=== PATIENT | male | born 1985 | race Caucasian/White ===

== ENCOUNTER 2017-01-11 18:21 | Emergency (ER) | payer BC, OTHER ==
[2017-01-11 18:34] VITALS: BP 131/79
--- NOTE | 2017-01-11 18:52 | ED ---
Back Pain - HPI Summary HPI Summary: 31M presents with back and neck pain and generalized ill feeling for 3 days. He states that he feels ill and that he normally does not have neck or back pain. He denies any fever but states that he feels hot and cold flashes. He states all of his joints have been hurting him but the worst is his back and neck. He denies any photophobia or changes in vision. He is still able to move his neck and states that it is a different pain than he has every experienced in the past. He denies any injury. He denies any history of back or neck pain. He states that it is hard to describe the pain it is almost like an ache but then he has this extreme fatigue along with it and has slept for 2 days straight. He states that he has been outside a lot doing yard work. He states he has had some recent tick exposure but he thought he got them off before they attached. He denies any rash. No loss of bowel or bladder or saddle anaesthesia. no weakness or numbness or tingling. He denies any cough, sore throat, abdominal pain, chest pain or SOB. <Renee Nguyen - Last Filed: 01/11/17 19:27> <Edelmira An - Last Filed: 01/11/17 20:35> - History of Current Complaint Chief Complaint: UCGeneralIllness Stated Complaint: NECK AND BACK PAIN Time Seen by Provider: 01/11/17 18:39 - Allergies/Home Medications Allergies/Adverse Reactions: Allergies Allergy/AdvReac Type Severity Reaction Status Date / Time No Known Allergies Allergy Verified 07/25/14 09:22 PMH/Surg Hx/FS Hx/Imm Hx Endocrine/Hematology History: Denies: Hx Diabetes, Hx Thyroid Disease Cardiovascular History: Denies: Hx Hypertension Respiratory History: Denies: Hx Asthma, Hx Chronic Obstructive Pulmonary Disease (COPD) GI History: Denies: Hx Ulcer Infectious Disease History: No Infectious Disease History: Denies: Hx Clostridium Difficile, Hx Hepatitis, Hx Human Immunodeficiency Virus (HIV), Hx of Known/Suspected MRSA, Hx Shingles, Hx Tuberculosis, Traveled Outside the [place] in Last 30 Days - Family History Known Family History: Positive: Cardiac Disease - Social History Alcohol Use: Occasionally Substance Use Type: Reports: None Smoking Status (MU): Former Smoker Type: eCigarettes Length of Time of Smoking/Using Tobacco: 8 YEARS Have You Smoked in the Last Year: No <Renee Nguyen - Last Filed: 01/11/17 19:27> Review of Systems Positive: Chills, Fatigue. Negative: Fever Negative: Chest Pain Positive: Myalgia - neck and back pain Positive: Headache All Other Systems Reviewed And Are Negative: Yes <Renee Nguyen - Last Filed: 01/11/17 19:27> Physical Exam Triage Information Reviewed: Yes Vital Signs On Initial Exam: Initial Vitals Temp Pulse Resp BP Pulse Ox 97.9 F 83 18 131/79 98 01/11/17 18:28 01/11/17 18:28 01/11/17 18:28 01/11/17 18:28 01/11/17 18:28 Vital Signs Reviewed: Yes Appearance: Positive: Ill-Appearing - faigued appearing Skin: Positive: Warm, Dry Head/Face: Positive: Normal Head/Face Inspection Eyes: Positive: Normal, EOMI, CARLA, Conjunctiva Clear ENT: Positive: Normal ENT inspection, Pharynx normal, TMs normal Neck: Positive: No Lymphadenopathy, Other: - tenderness across neck, no midline tenderness. Negative: Nuchal Rigidity Respiratory/Lung Sounds: Positive: Clear to Auscultation, Breath Sounds Present Cardiovascular: Positive: Normal, RRR Abdomen Description: Positive: Nontender, Soft Bowel Sounds: Positive: Present Musculoskeletal: Positive: Strength/ROM Intact - neck and back, Other - neg SLR , tender across entire back Neurological: Positive: Reflexes Intact - patella, biceps <Renee Nguyen - Last Filed: 01/11/17 19:27> Vital Signs On Initial Exam: Initial Vitals Temp Pulse Resp BP Pulse Ox 97.9 F 83 18 131/79 98 01/11/17 18:28 01/11/17 18:28 01/11/17 18:28 01/11/17 18:28 01/11/17 18:28 <Edelmira An - Last Filed: 01/11/17 20:35> Diagnostics - Vital Signs Vital Signs Temp Pulse Resp BP Pulse Ox 01/11/17 18:28 97.9 F 83 18 131/79 98 <Renee Nguyen - Last Filed: 01/11/17 19:27> - Vital Signs Vital Signs Temp Pulse Resp BP Pulse Ox 01/11/17 18:28 97.9 F 83 18 131/79 98 <Edelmira An - Last Filed: 01/11/17 20:35> Back Pain Course/Dx - Course Course Of Treatment: 31M presents with back and neck pain and generalized ill feeling for 3 days. He states that he feels ill and that he normally does not have neck or back pain. He denies any fever but states that he feels hot and cold flashes. He states all of his joints have been hurting him but the worst is his back and neck. He denies any photophobia or changes in vision. He is still able to move his neck and states that it is a different pain than he has every experienced in the past. He denies any injury. He denies any history of back or neck pain. He states that it is hard to describe the pain it is almost like an ache but then he has this extreme fatigue along with it and has slept for 2 days straight. He states that he has been outside a lot doing yard work. He states he has had some recent tick exposure but he thought he got them off before they attached. He denies any rash. on exam neg nuchal rigidity. no midline tenderness neck and back, neurovascular intact. patient appear fatigue on exam but afebrile. due to fatigue, back pain and headache and history of tick exposure will treat for lyme. with no history of trauma do not believe is musculoskeletal at this point. patient refused lyme titer. will treat with doxcycline. gave referral for PCP for patient to follow up about blood pressure. warned of signs to go to ED for such as nuchal rigidity with persistent fever. patient understands and agrees with plan. - Diagnoses Differential Diagnosis/HQI/PQRI: Positive: Herniated Disc, Sprain, Other - lyme <Renee Nguyen - Last Filed: 01/11/17 19:27> <Edelmira An - Last Filed: 01/11/17 20:35> - Diagnoses Provider Diagnoses: Back pain, Elevated blood pressure reading, Lyme disease Discharge <Renee Nguyen - Last Filed: 01/11/17 19:27> <Edelmira An - Last Filed: 01/11/17 20:35> - Discharge Plan Condition: Good Disposition: HOME Prescriptions: DOXYcycline CAP(*) [DOXYcycline 100MG CAP(*)] 100 mg PO BID #42 cap Patient Education Materials: Lyme Disease (ED) Forms: *Work Release [place]errals: [facility] [place] [facility] [place]Outside] Additional Instructions: You are being treated potentially for Lyme disease Take antibiotic twice a day for 21 days Take with food, use sunscreen when go outside Take Tylenol or ibuprofen for pain every 6 hours Establish care with primary care physician to follow up about blood pressure within 5 days Return to ED if develop persistent fevers with neck stiffness or any new or worsening symptoms Attestation Statement User Type: Provider - I was available for consult. This patient was seen by the [facility]. The patient was not presented to, seen by, or examined by me. -Brie <Edelmira An - Last Filed: 01/11/17 20:35>
== END 2017-01-11 19:18 | disposition home or self-care (01) ==
LOC: UCEAST 18:21
DX: M54.9 Dorsalgia, unspecified (principal); R03.0 Elevated blood-pressure reading, without diagnosis of hypertension; A69.20 Lyme disease, unspecified; Z87.891 Personal history of nicotine dependence
CPT/HCPCS: 99211; G0463

== ENCOUNTER 2018-03-02 14:51 | Emergency (ER) | payer BC, OTHER ==
[2018-03-02 15:10] VITALS: BP 148/54
--- NOTE | 2018-03-02 15:11 | UC ---
FLU HPI - HPI Summary HPI Summary: 32-year-old man otherwise healthy presents with 4 days of cough, congestion, sore throat, nasal discharge and insomnia. He states his cough is worse at night and keeps his awake in addition to not allow him to sleep. He denies any fever, shakes or chills. His son has also been ill with similar type illness. He has not received his flu shot yet this year. He is a nonsmoker. - History of Current Complaint Stated Complaint: SINUS COMPLAINT Time Seen by Provider: 03/02/18 15:04 Hx Obtained From: Patient - Allergy/Home Medications Allergies/Adverse Reactions: Allergies Allergy/AdvReac Type Severity Reaction Status Date / Time No Known Allergies Allergy Verified 03/02/18 15:09 PMH/Surg Hx/FS Hx/Imm Hx Previously Healthy: Yes - Surgical History Surgical History: None - Family History Known Family History: Positive: Cardiac Disease, Other - son also ill - Social History Alcohol Use: Occasionally Substance Use Type: None Smoking Status (MU): Former Smoker Type: eCigarettes Length of Time of Smoking/Using Tobacco: 8 YEARS Have You Smoked in the Last Year: No When Did the Patient Quit Smoking/Using Tobacco: 1 year ago Review of Systems Constitutional: Fatigue Skin: Negative Eyes: Negative ENT: Sore Throat, Ear Ache, Nasal Discharge, Sinus Congestion Respiratory: Cough Cardiovascular: Negative All Other Systems Reviewed And Are Negative: Yes Physical Exam Triage Information Reviewed: Yes Appearance: Well-Appearing, No Pain Distress, Well-Nourished Vital Signs Reviewed: Yes Eyes: Positive: Conjunctiva Clear ENT: Positive: Pharyngeal erythema, Nasal congestion, Nasal drainage, TM dull - R ear with small serous effusion. Negative: TM bulging, TM red, Tonsillar swelling, Tonsillar exudate, Sinus tenderness Neck: Positive: Supple, Nontender, No Lymphadenopathy Respiratory: Positive: Lungs clear Cardiovascular: Positive: RRR Musculoskeletal: Positive: Strength Intact Neurological Exam: Normal Skin Exam: Normal Flu Course/Dx - Course Course Of Treatment: minor URI sx, BP mildly elevated. Tx symptomatically. No hx of BP. BP likely related to acute illness. - Differential Dx/Diagnosis Differential Diagnosis/HQI/PQRI: Influenza, Pneumonia, Upper Respiratory Infection Provider Diagnoses: Upper respiratory infection. Elevated blood pressure due to acute illness Discharge - Sign-Out/Discharge Documenting (check all that apply): Patient Departure All imaging exams completed and their final reports reviewed: No Studies - Discharge Plan Condition: Improved Disposition: HOME Prescriptions: Albuterol HFA INHALER* [Ventolin HFA Inhaler*] 2 puff INH Q4H PRN #1 mdi PRN Reason: Sob/Wheezing Guaifenesin/Pseudoephedrne HCl [Mucinex D ER Tablet] 1 each PO BID PRN #14 tab.er.12h PRN Reason: congestion/nasal drainage predniSONE TAB* [Deltasone TAB*] 50 mg PO DAILY #5 tab Patient Education Materials: Upper Respiratory Infection (ED) Forms: *Work Release Referrals: [facility] [Outside] [facility] [place] [facility] [place]] Additional Instructions: Humidifier at bedside. Avoid smokers. Benadryl or NyQuil at bedtime for sleep. Return if worse, high fevers, new symptoms or other concerns. Melatonin can also help with sleep. - Billing Disposition and Condition Condition: IMPROVED Disposition: Home - Attestation Statements Document Initiated by Ramses: No
== END 2018-03-02 15:31 | disposition home or self-care (01) ==
LOC: UCEAST 14:51
DX: J06.9 Acute upper respiratory infection, unspecified (principal); R03.0 Elevated blood-pressure reading, without diagnosis of hypertension; Z87.891 Personal history of nicotine dependence
CPT/HCPCS: 99212; G0463

== ENCOUNTER 2019-08-03 08:31 | Emergency (ER) | payer BC ==
[2019-08-03 09:06] VITALS: BP 120/85
[2019-08-03 09:24] LABS: Influenza A Molecular Negative (Negative); Influenza B Molecular Negative (Negative)
--- NOTE | 2019-08-03 09:41 | UC ---
Throat Pain/Nasal Fausto HPI - HPI Summary HPI Summary: CHIEF COMPLAINT: head cold HPI: This is a "I have a head cold; ears scratchy"; beginning this morning with congestion; no sick contacts; no Covid 19 contacts; once or twice a year, similar symptoms; was a smoker 6 years ago. Description of Pain: no VITAL SIGNS REVIEWED. Within normal limits unless noted here. NURSES NOTE REVIEWED. " pt states he feels ill, headache, nasal congestion, cough, afebrile. symptoms started this am. pt is unsure if he has been exposed to anyone with covid-19. " - History of Current Complaint Chief Complaint: UCRespiratory Stated Complaint: HEAD CONGESTION Time Seen by Provider: 08/03/19 09:04 Hx Obtained From: Patient Pain Intensity: 4 - Allergies/Home Medications Allergies/Adverse Reactions: Allergies Allergy/AdvReac Type Severity Reaction Status Date / Time No Known Allergies Allergy Verified 08/03/19 08:51 Home Medications: Home Medications Aspirin/Acetaminophen/Caffeine [Excedrin Migraine Caplet] 1 tab PO ONCE PRN [History Confirmed 08/03/19] PMH/Surg Hx/FS Hx/Imm Hx - Additional Past Medical History Additional PMH: PAST MEDICAL HISTORY- CHRONIC and RECURRENT HEALTH PROBLEM LIST REVIEWED. Information relevant to present complaint: VISIT HISTORY REVIEWED. MEDICATIONS & ALLERGIES REVIEWED. HYPERTENSION STATUS:none. FAMILY HISTORY: Patient denies family history of: hypertension, cardiovascular disease, stroke, diabetes, cancer. 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 Previously Healthy: Yes - Surgical History Surgical History: None - Family History Known Family History: Positive: Cardiac Disease, Other - son also ill - Social History Alcohol Use: None Substance Use Type: None Smoking Status (MU): Former Smoker Type: eCigareyuliaes Length of Time of Smoking/Using Tobacco: 8 YEARS Have You Smoked in the Last Year: No When Did the Patient Quit Smoking/Using Tobacco: 1 year ago Household Exposure Type: Cigarettes Review of Systems All Other Systems Reviewed And Are Negative: Yes Eyes: Positive: Other - watery eyes ENT: Positive: Sinus Congestion Respiratory: Positive: Negative Cardiovascular: Positive: Negative Gastrointestinal: Positive: Negative Is Patient Immunocompromised?: No Physical Exam - Summary Physical Exam Summary: Appearance: The patient is well-appearing, is in no pain or distress, and is well-nourished. Eyes: Conjunctiva are clear. Pupils are equal and reactive to light and accommodation. Extra ocular muscle movement is intact. ENT: The hearing is grossly normal, the pharynx is normal, and the TMs are normal. There is no muffled or hoarse voice. No stridor. Neck: The neck is supple and there is no lymphadenopathy. Respiratory: The chest is non-tender to palpation and without crepitus. The lungs are clear, there are normal breath sounds, and there is no respiratory distress. No wheezes, rales or rhonchi. Cardiovascular: Heart sounds reveal a regular rate and rhythm. There are no clicks, rubs or murmurs. There are no carotid bruits or thrills. Circulation is grossly intact. Abdomen: The abdomen is soft and nontender. There is no organomegaly. Bowel sounds are present and within normal limits. No point tenderness at McBurneys point. No CVA tenderness. Musculoskeletal: Strength is intact. The patient moves all extremities. Neurological: The patient is alert. Motor and sensory are examination grossly intact. Speech is normal. Psychological: The patient displays age appropriate behavior, and is conversant. GCS=15. Skin: Negative for rashes. Laboratory Results - last 24 hr 08/03/19 08/03/19 09:11 09:12 Influenza A (Rapid) Negative Influenza B (Rapid) Negative Group A Strep Rapid Negative Triage Information Reviewed: Yes Vital Signs: Initial Vital Signs Temp 98.6 F 08/03/19 08:45 Pulse 65 08/03/19 08:45 Resp 18 08/03/19 08:45 BP 120/85 08/03/19 08:45 Pulse Ox 97 08/03/19 08:45 Vital Signs Reviewed: Yes Throat Pain/Nasal Course/Dx - Course Course Of Treatment: This is a "I have a head cold; ears scratchy"; beginning this morning with congestion; no sick contacts; no Covid 19 contacts; once or twice a year, similar symptoms; was a smoker 6 years ago. physical examination is unremarkable. The patient has some congestion but no sinus tenderness. The ear examination is normal. Rapid strep and influenza examinations are negative. My diagnosis is upper respiratory infection. The patient will be treated symptomatically. In discussion with the patient, I decided that we do not need to obtain a Covid 19 test at this time. However the patient will isolate himself for the next 2 days in his house by himself and if he has any cough or develops any fever, he will call here and arrange to be reevaluated. my diagnosis is upper respiratory infection. - Differential Dx/Diagnosis Differential Diagnosis/HQI/PQRI: Influenza, Otitis Media, Pharyngitis Provider Diagnosis: Upper respiratory infection Discharge ED - Sign-Out/Discharge Documenting (check all that apply): Patient Departure All imaging exams completed and their final reports reviewed: No Studies - Discharge Plan Condition: Stable Disposition: HOME Patient Education Materials: Upper Respiratory Infection (DC) Forms: *Work Release Referrals: No Primary Care Phys,NOPCP [Primary Care Provider] - Additional Instructions: WE DISCUSSED: you appear to have a head cold. At this point the plan is few to go home and begin your house alone without working for the next 2 days. If you develop a cough or a fever he will need further evaluation. If that is the case call us before coming in. See other instructions below to make you more comfortable. He should not be developing chest pain, shortness of breath or fever. PLEASE SEEK CARE AT THE EMERGENCY DEPARTMENT IF SYMPTOMS WORSEN OR IF NEW SYMPTOMS DEVELOP. FOLLOW UP WITH YOUR PRIMARY CARE PHYSICIAN IF CONDITION CONTINUES BEYOND 3 DAYS WITHOUT IMPROVEMENT. YOUR DIAGNOSIS IS:upper respiratory infection YOUR PRESCRIPTION RECOMMENDATION IS:none OTHER INSTRUCTIONS: Other information: The most important goal is to liquefy all the phlegm and mucus, and get it out of your head and chest. For sore throat, it is important to keep throat moist and protected. Any illness causing cough, congestion, sore throat or sinus discomfort can be helped by doing the following: To clear you head, sinuses and chest of congestion: stand under a warm shower stream to loosen secretions. Use a vaporizor. Stay away from smoke or irritants. Use saline nasal spray or Neti Pot to keep the flow of mucus from your nostrils and sinuses. For sore throat: drink lots of warm fluids. Tea and honey is particularly useful because the honey can coat protect your throat. Gargle with warm water with 1/2 teaspoon of salt per 8 ounces of water. Gargle for a few seconds and spit out. Repeat every three hours. Keep your throat protected with lozenges. Don't let your throat dry out. Use a vaporizor at night. Make sure to check with your pharmacist if you are taking other prescription medication prior to taking any over the counter medications listed here. DECONGESTANTS: helps relieve stuffiness and clears sinuses. Pseudoephedrine ( Sudafed or generic) is effective but you need to ask the pharmacist for it because it may be kept behind the counter. ANTIHISTAMINES: are not helpful in many colds and flus because they can worsen sore throat, dry eyes and mouth and cause drowsiness. Examples are diphenhydramine, doxylamine and chlorpheniramine. They can help dry you out if you are having profuse, clear drainage from the nose or post-nasal drip. EXPECTORANTS: helps thin mucous in the nose and chest, making it easier to clear the fluid out. Expectorants are in most combination cough/cold remedies and should be taken with plenty of water. Guaifenesin is the most common expectorant and it comes in pill or liquid form. Mucinex is an extended release form of guaifenesin. COUGH SUPPRESSANT: reduces the body's cough reflex. Dextromethorphan is in over the counter products, but sometimes narcotics such as codeine or hydrocodone are used to suppress cough. SPECIFIC MEDICATIONS: The following medicines may help: To help with cough: DEXTROMETHORPHAN (Vicks, Robitussin, Nyquil and other brands) To help break up phlegm: GUAIFENESIN (Mucinex, Robitussin, other brands) To help clear congestion in the nose and sinuses: PSEUDOEPHEDRINE (Sudafed, Dimetapp, other brands) To help clear nasal congestion: AFRIN NASAL SPRAY: 2-3 SPRAYS PER NOSTRIL, TWICE A DAY FOR TWO DAYS ONLY. FLONASE: (or other steroid nasal sprays) can help if your running nose is caused by an allergy. It can help relieve congestion. It is used once a day in each nostril. Check the dose with your pharmacist. FOLLOW-UP: re-check in 10 days if you are not improving. Return here or see your caregiver. RE-CHECK SOONER if you have increased pain, temperature, cough, sinus symptoms, or difficulty breathing or swallowing. Go directly to Emergency Department if symptoms are severe. FOR PAIN AND/OR SLEEP: For pain: Ibuprofen (Motrin and other brand names) 400-600mg PLUS acetaminophen (Tylenol and other brand names) 500mg - 1000mg every 8 hours. - Billing Disposition and Condition Condition: STABLE Disposition: Home
== END 2019-08-03 10:06 | disposition home or self-care (01) ==
LOC: UCEAST 08:31
DX: J06.9 Acute upper respiratory infection, unspecified (principal); Z87.891 Personal history of nicotine dependence
CPT/HCPCS: 87651; 99211; G0463

== ENCOUNTER 2021-01-12 11:21 | Inpatient (IN) ==
[2021-01-12] MEDS ORDERED: Lactated Ringers 1000 ml BAG 1,000 ML IV ONE (11:56)
[2021-01-12 12:20] LABS: ABS Monocytes 0.5 10^3/ul (0-0.8); ABS Neutrophils 6.1 10^3/ul (1.5-7.7); Eosinophil % 0.2 %; Hematocrit 40 % (42-52); Lymphocyte % 13.5 %; Mean Corpuscular HGB Conc 35 g/dL (31-36); Mean Corpuscular Hemoglobin 31 pg (27-31); Mean Corpuscular Volume 89 fL (80-94); Nucleated Red Blood Cells % 0.1; Platelet Count 302 10^3/uL (150-450); Red Blood Count 4.55 10^6 /uL (4.18-5.48); Red Cell Distribution Width 13 % (10-15); White Blood Count 7.6 10^3/uL (3.5-10.8)
[2021-01-12 12:30] LABS: Activated Partial Thrombo Time 28.6 seconds (26.0-38.0); INR 1.19 (0.86-1.15)
[2021-01-12 12:37] LABS: Albumin 3.6 g/dL (3.2-5.2); Albumin/Globulin Ratio 0.9 (1-3); C Reactive Protein 136.56 mg/L (<8.01); Calcium 8.6 mg/dL (8.6-10.3); EGFR African American 110.6 (>60); EGFR Non-African American 91.4 (>60); Globulin 3.8 g/dL (2-4); Potassium 3.7 mmol/L (3.5-5.0); Total Bilirubin 0.6 mg/dL (0.2-1.0); Total Protein 7.4 g/dL (6.4-8.9)
[2021-01-12 12:38] LABS: Troponin I 0.01 ng/mL (<0.03)
[2021-01-12 13:42] LABS: Ferritin 368.2 ng/mL (24-336)
[2021-01-12 13:53] LABS: Venous Bicarbonate HCO3 27.1 mmol/L (24-28)
[2021-01-12] MEDS ORDERED: Enoxaparin 40 MG/0.4 ML SYR SUBCUT SCH (15:00)
[2021-01-12] MEDS ORDERED: Remdesivir 200 mg LOADING DOSE X1 IV ONE (15:15)
[2021-01-12] MEDS ORDERED: Azithromycin 500 mg/250 ml NS 500 MG/250 ML BAG IVPB ONE (15:33)
[2021-01-12] MEDS: cefTRIAXone 1 gm/50 mL NS BAG 1 GM/50 ML BAG IVPB SCH (16:23)
[2021-01-12] MEDS ORDERED: Tocilizumab 200 MG/10 ML 10 ml VIAL IVPB ONE (17:03)
[2021-01-12] MEDS: Enoxaparin 80 MG/0.8 ML SYR SUBCUT SCH (20:53)
[2021-01-13 04:32] LABS: Hematocrit 37 % (42-52); Mean Corpuscular HGB Conc 35 g/dL (31-36); Mean Corpuscular Hemoglobin 31 pg (27-31); Mean Corpuscular Volume 88 fL (80-94); Mean Platelet Volume 7.8 fL (7.4-10.4); Platelet Count 314 10^3/uL (150-450); Red Blood Count 4.23 10^6 /uL (4.18-5.48); Red Cell Distribution Width 13 % (10-15); White Blood Count 3.8 10^3/uL (3.5-10.8)
[2021-01-13 04:48] LABS: Albumin 3.4 g/dL (3.2-5.2); C Reactive Protein 142.17 mg/L (<8.01); Calcium 8.8 mg/dL (8.6-10.3); EGFR African American 127.9 (>60); EGFR Non-African American 105.7 (>60); Globulin 3.4 g/dL (2-4); Potassium 4.2 mmol/L (3.5-5.0); Total Bilirubin 0.5 mg/dL (0.2-1.0); Total Protein 6.8 g/dL (6.4-8.9)
[2021-01-13 05:20] LABS: ABS Lymphocytes 0.9 10^3/ul (1.0-4.8); ABS Monocytes 0.3 10^3/ul (0-0.8); ABS Neutrophils 2.6 10^3/ul (1.5-7.7); Lymphocyte % 23.3 %; Nucleated Red Blood Cells % 0.1
[2021-01-13] MEDS: Enoxaparin 80 MG/0.8 ML SYR SUBCUT SCH ×2 (07:14→20:20)
[2021-01-13] MEDS: Remdesivir 100 mg Vial 100 MG in NS 0.9% 250 ml 230 ML IV SCH (09:05)
[2021-01-13] MEDS: methylPREDNISolone 125 mg 2 ML VIAL IV SCH ×2 (10:46→17:07)
[2021-01-13] MEDS ORDERED: Dextrose 50% Syringe 50 ml 25 GM/50 ML SYRINGE IV PUSH PRN (15:29)
[2021-01-13] MEDS: cefTRIAXone 1 gm/50 mL NS BAG 1 GM/50 ML BAG IVPB SCH (17:07)
[2021-01-13] MEDS: Multivitamins/Minerals TAB PO SCH (17:07)
[2021-01-14] MEDS: methylPREDNISolone 125 mg 2 ML VIAL IV SCH ×3 (02:10→17:51)
[2021-01-14 05:16] LABS: ABS Lymphocytes 1.7 10^3/ul (1.0-4.8); ABS Monocytes 0.8 10^3/ul (0-0.8); ABS Neutrophils 11.2 10^3/ul (1.5-7.7); Hematocrit 36 % (42-52); Hemoglobin 12.5 g/dL (14.0-18.0); Lymphocyte % 12.4 %; Mean Corpuscular HGB Conc 35 g/dL (31-36); Mean Corpuscular Hemoglobin 31 pg (27-31); Mean Corpuscular Volume 88 fL (80-94); Nucleated Red Blood Cells % 0.1; Platelet Count 373 10^3/uL (150-450); Red Blood Count 4.07 10^6 /uL (4.18-5.48); Red Cell Distribution Width 13 % (10-15); White Blood Count 13.8 10^3/uL (3.5-10.8)
[2021-01-14 05:30] LABS: Calcium 8.8 mg/dL (8.6-10.3); EGFR African American 133.5 (>60); EGFR Non-African American 110.4 (>60); Magnesium 1.9 mg/dL (1.9-2.7); Phosphorus 3.6 mg/dL (2.5-5.0); Potassium 4.3 mmol/L (3.5-5.0)
[2021-01-14] MEDS ORDERED: Perflutren Lipid Microsphere 3 ML VIAL ONE (08:51)
[2021-01-14] MEDS: Enoxaparin 80 MG/0.8 ML SYR SUBCUT SCH ×2 (08:57→20:45)
[2021-01-14] MEDS: Multivitamins/Minerals TAB PO SCH (08:57)
[2021-01-14] MEDS: Insulin GLARGINE 100 un/ml 10 ml VIAL SUBCUT SCH ×2 (09:08→17:52)
[2021-01-14] MEDS ORDERED: Furosemide 20 mg/2 ml IV VIAL IV ONE (09:29)
[2021-01-14] MEDS: CMCS: Baricitinib 2 MG TAB (NF) PO SCH (10:37)
[2021-01-14] MEDS: Remdesivir 100 mg Vial 100 MG in NS 0.9% 250 ml 230 ML IV SCH (10:45)
[2021-01-14] MEDS: Pantoprazole VIAL 40 MG VIAL IV SCH (13:15)
[2021-01-14] MEDS: cefTRIAXone 1 gm/50 mL NS BAG 1 GM/50 ML BAG IVPB SCH (16:20)
[2021-01-14 16:30] LABS: Adenovirus Undetected (Undetected); Bordetella parapertussis Undetected (Undetected); Bordetella pertussis Undetected (Undetected); Chlamydophila pneumoniae Undetected (Undetected); Coronavirus 229E Undetected (Undetected); Coronavirus HKU1 Undetected (Undetected); Coronavirus NL63 Undetected (Undetected); Coronavirus OC43 Undetected (Undetected); Human Metapneumovirus Undetected (Undetected); Human Rhinovirus/Enterovirus Undetected (Undetected); Influenza A Undetected (Undetected); Influenza B Undetected (Undetected); Mycoplasmoides pneumoniae Undetected (Undetected); Parainfluenza Virus 1 Undetected (Undetected); Parainfluenza Virus 2 Undetected (Undetected); Parainfluenza Virus 3 Undetected (Undetected); Parainfluenza Virus 4 Undetected (Undetected); Respiratory Syncytial Virus Undetected (Undetected); Specimen Source NASOPHARYNGEAL SWAB
[2021-01-14] MEDS ORDERED: Dextrose 50% Syringe 50 ml 25 GM/50 ML SYRINGE IV PUSH PRN (17:45)
[2021-01-14 18:24] LABS: Glucose Confirmatory 474 mg/dL (70-100)
[2021-01-14] MEDS ORDERED: Insulin GLARGINE 100 un/ml 10 ml VIAL SUBCUT SCH (21:00)
[2021-01-15] MEDS: methylPREDNISolone 125 mg 2 ML VIAL IV SCH ×3 (02:01→21:28)
[2021-01-15 04:42] LABS: Hematocrit 37 % (42-52); Hemoglobin 12.9 g/dL (14.0-18.0); Mean Corpuscular HGB Conc 35 g/dL (31-36); Mean Corpuscular Hemoglobin 30 pg (27-31); Mean Corpuscular Volume 87 fL (80-94); Mean Platelet Volume 8.3 fL (7.4-10.4); Platelet Count 392 10^3/uL (150-450); Red Blood Count 4.24 10^6 /uL (4.18-5.48); Red Cell Distribution Width 13 % (10-15); White Blood Count 18.7 10^3/uL (3.5-10.8)
[2021-01-15 04:59] LABS: Calcium 8.5 mg/dL (8.6-10.3); EGFR African American 126.1 (>60); EGFR Non-African American 104.3 (>60); Magnesium 2.1 mg/dL (1.9-2.7); Phosphorus 3.9 mg/dL (2.5-5.0); Potassium 4.3 mmol/L (3.5-5.0)
[2021-01-15 05:49] LABS: ABS Lymphocytes 1.6 10^3/ul (1.0-4.8); ABS Monocytes 1.2 10^3/ul (0-0.8); ABS Neutrophils 15.9 10^3/ul (1.5-7.7); Lymphocyte % 8.6 %
[2021-01-15] MEDS: Insulin GLARGINE 100 un/ml 10 ml VIAL SUBCUT SCH (08:49)
[2021-01-15] MEDS: Remdesivir 100 mg Vial 100 MG in NS 0.9% 250 ml 230 ML IV SCH (09:54)
[2021-01-15] MEDS: Multivitamins/Minerals TAB PO SCH (10:02)
[2021-01-15] MEDS: CMCS: Baricitinib 2 MG TAB (NF) PO SCH (10:02)
[2021-01-15] MEDS: Enoxaparin 80 MG/0.8 ML SYR SUBCUT SCH ×2 (10:04→21:29)
[2021-01-15] MEDS: Pantoprazole VIAL 40 MG VIAL IV SCH (10:04)
[2021-01-15] MEDS ORDERED: Dextrose 50% Syringe 50 ml 25 GM/50 ML SYRINGE IV PUSH PRN ×2 (15:51→20:31)
[2021-01-15] MEDS: cefTRIAXone 1 gm/50 mL NS BAG 1 GM/50 ML BAG IVPB SCH (17:16)
[2021-01-15 17:51] LABS: Glucose Confirmatory 480 mg/dL (70-100)
[2021-01-15 20:19] LABS: Glucose Confirmatory 466 mg/dL (70-100)
[2021-01-15] MEDS ORDERED: Insulin GLARGINE 100 un/ml 10 ml VIAL SUBCUT SCH ×2 (21:00)
[2021-01-15] MEDS ORDERED: Metoclopramide 5 MG/ML VIAL (10 mg) IV SLOW PU ONE (21:43)
[2021-01-16 04:34] LABS: ABS Basophils 0.1 10^3/ul (0-0.2); ABS Lymphocytes 1.7 10^3/ul (1.0-4.8); ABS Monocytes 1.3 10^3/ul (0-0.8); ABS Neutrophils 15.7 10^3/ul (1.5-7.7); Hematocrit 36 % (42-52); Hemoglobin 12.2 g/dL (14.0-18.0); Lymphocyte % 8.8 %; Mean Corpuscular HGB Conc 35 g/dL (31-36); Mean Corpuscular Hemoglobin 31 pg (27-31); Mean Corpuscular Volume 89 fL (80-94); Mean Platelet Volume 8.5 fL (7.4-10.4); Platelet Count 363 10^3/uL (150-450); Red Blood Count 4.01 10^6 /uL (4.18-5.48); Red Cell Distribution Width 13 % (10-15); White Blood Count 18.8 10^3/uL (3.5-10.8)
[2021-01-16 04:54] LABS: Calcium 8.5 mg/dL (8.6-10.3); EGFR African American 137.6 (>60); EGFR Non-African American 113.7 (>60); Potassium 4.2 mmol/L (3.5-5.0)
[2021-01-16] MEDS: methylPREDNISolone 125 mg 2 ML VIAL IV SCH (08:52)
[2021-01-16] MEDS: Multivitamins/Minerals TAB PO SCH (08:53)
[2021-01-16] MEDS: CMCS: Baricitinib 2 MG TAB (NF) PO SCH (08:53)
[2021-01-16] MEDS: Enoxaparin 80 MG/0.8 ML SYR SUBCUT SCH (08:55)
[2021-01-16] MEDS: Pantoprazole VIAL 40 MG VIAL IV SCH (08:56)
[2021-01-16] MEDS ORDERED: Insulin GLARGINE 100 un/ml 10 ml VIAL SUBCUT SCH (09:00)
[2021-01-16] MEDS: Remdesivir 100 mg Vial 100 MG in NS 0.9% 250 ml 230 ML IV SCH (09:22)
[2021-01-16 13:24] VITALS: BP 126/67
== END 2021-01-16 14:15 | disposition home or self-care (01) | DRG 137 ==
LOC: ED 11:21 → MED 16:20 → SUATTDRO 16:20 → ICU 17:54 → MED 01-15 16:51
PROVIDERS: ADMIT Internal Medicine; ATTEND Hospitalist